=== PATIENT | female | born 1995 | race Caucasian/White ===

== ENCOUNTER 2018-03-17 22:44 | Day surgery (SDC) | payer OTHER ==
[2018-03-17 23:22] VITALS: BMI 29.7
--- NOTE | 2018-03-18 02:46 | PRG ---
DATE OF SERVICE: 03/17/2018 PRIMARY JELLY FILTER TENDER: Reena Jane M.D. CHIEF COMPLAINT: Abdominal pain. HISTORY OF PRESENT ILLNESS: The patient is a 22-year-old female with an intrauterine at 37 weeks and 5 days who presents to labor and delivery today with abdominal cramping and pain sin ce being seen by Dr. Jane today in the office. The patient reports she had a cervical check, there was 220 and -1 station. She reports that Dr. Jane did "a light sweep" and since then, patient has been kind of crampy. She reports the last time she felt like she waited too long to come in and wan aparna to make sure everything was okay. The patient denies any vaginal bleeding, any leaking fluid, an y urinary urgency or frequency, any fever, fall, headache, chest pain, shortness of breath, nausea, v omiting, diarrhea, constipation, any new rashes, hip problems or knee problems. She has been having some of the cramping pain in her back. She denies any urinary urgency or frequency. PAST MEDICAL HISTORY: Negative. PAST SURGICAL HISTORY: Negative. ALLERGIES: No known drug allergies. MEDICATIONS: vitamins and iron. SOCIAL HISTORY: Denies drug, alcohol or tobacco use. OB LABS: RPR is nonreactive in the third trimester. Hepatitis B surface antigen nonreactive in the third trimester. HIV nonreactive in the third trimester. GC and chlamydia are negative. She is rub ivone immune, blood type is A positive. REVIEW OF SYSTEMS: Per HPI. PHYSICAL EXAMINATION: VITAL SIGNS: Blood pressure 121/75, heart rate of 99, respiratory rate 18, temperature 98.9. GENERAL: The patient appears to be in no acute distress. She is alert and oriented, cooperative and pleasant to interact with. HEENT: Normocephalic, atraumatic. LUNGS: Clear to auscultation bilaterally. HEART: Regular rate and rhythm. ABDOMEN: Soft, nontender to palpation. EXTREMITIES: Nontender, nonedematous. Her cervical exam was unchanged from her visit earlier today at 220 and -2 station. heart tracing and NST performed for abdominal pain in . Duration is approximately 40 minutes. Baselines noted to be in the 130s with moderate long-term variability, positive acceleratio ns, no decelerations, positive 15 x 15 accelerations. Tocometer shows some irritability with 1-2 shena jayjay visible contractions. ASSESSMENT AND PLAN: The patient is a 22-year-old female with an intrauterine at 37 weeks and 5 days here to rule out labor. The patient has no evidence of active labor at this time. She has a category 1 tracing with a reactive NST for her baby. She reports she is GBS negative. The patient has an appointment to see Dr. Jane in 1 week. She has been given term labor precautions.
== END 2018-03-17 23:55 | disposition home or self-care (01) ==
LOC: L&D/OP 22:44
PROVIDERS: ATTEND Family Medicine
DX: O99.89 Other specified diseases and conditions complicating pregnancy, childbirth and the puerperium (principal); R10.9 Unspecified abdominal pain; Z3A.37 37 weeks gestation of pregnancy
CPT/HCPCS: 99282

== ENCOUNTER 2018-03-27 19:39 | Inpatient (IN) | payer OTHER ==
[~2018-03-27 19:39] MED LIST: Lidocaine 2% MPF 10 ML AMP (For Epidural Use) ONE; ePHEDrine/0.9% NaCl/PF SYRINGE 50 mg/10 ml ONE
[2018-03-27 20:14] VITALS: BMI 29.7
[2018-03-27] MEDS ORDERED: Ibuprofen 800 MG TAB PO PRN (20:24)
[2018-03-27] MEDS ORDERED: Ondansetron HCl/PF 4 MG/2 ML Vial IVP PRN ×2 (20:24→22:52)
[2018-03-27] MEDS ORDERED: Lidocaine 1% (PF) 30 ML VIAL SC PRN (20:24)
[2018-03-27] MEDS ORDERED: Methylergonovine 0.2 MG/ML VIAL IM PRN (20:24)
[2018-03-27] MEDS ORDERED: HYDROcodone/Acetaminophen 5/325 mg Tablet PO PRN ×2 (20:24)
[2018-03-27] MEDS ORDERED: Lactated Ringer's 1,000 ML IV SCH (20:30)
[2018-03-27] MEDS ORDERED: Bupivacaine 0.75% 13.4 ML, fentaNYL Citrate/PF 400 MCG in Sodium Chloride 0.9% 78.6 ML EPIDURAL SCH (21:00)
[2018-03-27] MEDS ORDERED: DISCONTINUE ALL PREVIOUS NARCOTICS FS SCH (21:00)
[2018-03-27] MEDS: Lactated Ringer's 1,000 ML IV SCH ×2 (21:05→23:05)
[2018-03-27 21:13] LABS: Hemoglobin 11.9 g/dL (12.0-16.0); Mean Corpuscular HGB CONC 34.9 g/dL (32.0-36.0); Mean Corpuscular Hemoglobin 30.6 pg (27.0-31.0); Mean Corpuscular Volume 87.9 fL (78.0-98.0); Mean Platelet Volume 7.9 fL (7.4-10.4); Platelet Count 223 thou/uL (130-400); RBC Distribution Width 12.3 % (11.5-14.5); Red Blood Cell (RBC) Count 3.87 mill/uL (4.20-5.40); White Blood Cell (WBC) Count 14.4 thou/uL (4.8-10.8)
[2018-03-27 21:51] LABS: Syphilis Antibody Nonreactive (Nonreactive); Syphilis Antibody Index 0.02 S/CO (<1.00 Non-Reactive)
[2018-03-27 22:50] LABS: Hep B Surf Ag Non-Reactive S/CO (NonReactive)
[2018-03-27] MEDS ORDERED: diphenhydrAMINE 50 MG/ML VIAL IVP PRN (22:52)
[2018-03-27] MEDS ORDERED: Eucerin (Mineral Oil/Petrolatum,White) 30 gm Jar TOP PRN (22:52)
[2018-03-27] MEDS ORDERED: Naloxone HCl 0.4 mg/ml Vial IVP PRN ×2 (22:52)
[2018-03-27] MEDS ORDERED: Acetaminophen 325 MG TAB PO PRN (22:52)
[2018-03-27] MEDS ORDERED: Promethazine HCl 25 MG/ML VIAL IM PRN (22:52)
[2018-03-27] MEDS ORDERED: Lactated Ringer's 500 ML IV PRN (22:52)
[2018-03-27] MEDS ORDERED: ePHEDrine/0.9% NaCl/PF SYRINGE 50 mg/10 ml SLOW IVP PRN (22:52)
[2018-03-27] MEDS ORDERED: Communication Order-Pharmacy FS SCH (23:00)
[2018-03-27] MEDS ORDERED: fentaNYL Citrate/PF 400 MCG, Bupivacaine 0.5% 20 ML in Sodium Chloride 0.9% 72 ML EPIDURAL SCH (23:00)
[2018-03-27] MEDS ORDERED: Dextrose 5%-Lactated Ringers 1,000 ML IV SCH (23:45)
[2018-03-28] MEDS ORDERED: Terbutaline Sulfate 1 MG/ML VIAL ONE (00:27)
[2018-03-28] MEDS ORDERED: Acetaminophen 1,000 MG in Premix Bag 1 BAG IVPB SCH (02:45)
[2018-03-28] MEDS ORDERED: NS / Oxytocin 40 units/1000ml 1,000 ML ONE (02:51)
[2018-03-28] MEDS ORDERED: Lidocaine 1% (PF) 30 ML VIAL ONE (02:51)
[2018-03-28] MEDS: NS / Oxytocin 40 units/1000ml 1,000 ML IV PRN ×2 (03:10→04:15)
[2018-03-28 03:35] LABS: Actual Bicarbonate (HCO3a) 25.4 mEq/L (22-28); Base Excess (BEa) -7.8 mEq/L (-2.0 to +3.0)
[2018-03-28 04:58] LABS: #Lymphocytes 1.3 thou/uL (1.20-3.40); #Monocytes 0.8 thou/uL (0.11-0.59); #Neutrophils 13.5 thou/uL (1.40-6.50); %Neutrophils 86.9 % (42.0-75.0); Hemoglobin 9.3 g/dL (12.0-16.0); Mean Corpuscular HGB CONC 33.9 g/dL (32.0-36.0); Mean Corpuscular Hemoglobin 30.3 pg (27.0-31.0); Mean Corpuscular Volume 89.2 fL (78.0-98.0); Platelet Count 159 thou/uL (130-400); RBC Distribution Width 12.3 % (11.5-14.5); Red Blood Cell (RBC) Count 3.07 mill/uL (4.20-5.40); White Blood Cell (WBC) Count 15.6 thou/uL (4.8-10.8)
[2018-03-28] MEDS ORDERED: NS / Oxytocin 40 units/1000ml 1,000 ML IV SCH (07:36)
[2018-03-28] MEDS ORDERED: Lanolin Ointment 7 GM TUBE TOP PRN (07:36)
[2018-03-28] MEDS ORDERED: Ondansetron HCl/PF 4 MG/2 ML Vial IVP PRN (07:36)
[2018-03-28] MEDS ORDERED: Bisacodyl 10 MG SUPP PR PRN (07:36)
[2018-03-28] MEDS ORDERED: Adacel (T-DAP) 0.5 ML VIAL IM ONE (07:36)
[2018-03-28] MEDS ORDERED: Milk Of Magnesia 30 ML UDCUP PO PRN (07:36)
--- NOTE | 2018-03-28 07:58 | DN ---
DATE OF ADMISSION: 03/27/2018 DATE OF DELIVERY: 03/28/2018 SUMMARY: The patient delivered a female infant on 03/28/2018 at 3:03 a.m. by term spontaneous vagina l delivery complicated by shoulder dystocia relieved with suprapubic pressure. Gestational age of 39 weeks and 2 days. Apgars are 8, 4 and 8 at 1, 5 and 10 minutes respectively. Weight is unavailable at the time of dictation and there was a nuchal cord x1. Placenta delivered spontaneously followed by Pitocin infusion. There were no lacerations. Estimated blood loss is approximately 300 mL [address] Dr. Acosta is the delivering physician. Mother is stable in the room in the immediate postpar gisela. Baby was taken to nursery for observation. Blood gas taken at the time of delivery was with a pH of 7.04, base excess of negative 7.
[2018-03-28] MEDS ORDERED: Ibuprofen 800 MG TAB PO SCH (08:00)
[2018-03-28] MEDS: Ferrous Sulfate 325 MG TAB PO SCH ×2 (09:27→17:36)
[2018-03-28] MEDS: Docusate Calcium (SURFAK) 240 MG CAP PO SCH ×2 (09:42→23:18)
[2018-03-28] MEDS: Prenatal Vitamin 1 TAB PO SCH (09:42)
[2018-03-28] MEDS: Ibuprofen 800 MG TAB PO SCH ×2 (15:14→23:18)
[2018-03-28] MEDS ORDERED: HYDROcodone/Acetaminophen 5/325 mg Tablet PO PRN ×2 (20:07)
[2018-03-29 05:30] LABS: Hemoglobin 9.2 g/dL (12.0-16.0); Mean Corpuscular HGB CONC 33.9 g/dL (32.0-36.0); Mean Corpuscular Hemoglobin 30.4 pg (27.0-31.0); Mean Corpuscular Volume 89.6 fL (78.0-98.0); Mean Platelet Volume 8.1 fL (7.4-10.4); Platelet Count 177 thou/uL (130-400); RBC Distribution Width 12.4 % (11.5-14.5); Red Blood Cell (RBC) Count 3.03 mill/uL (4.20-5.40); White Blood Cell (WBC) Count 13.3 thou/uL (4.8-10.8)
--- NOTE | 2018-03-29 06:12 | PDOC.PP ---
Post Progress Note Post Day #: 1 Subjective: , doing well. PO intake tolerated: yes Flatus: yes Ambulation: yes Vital Signs (12 hours) Temp Pulse Resp BP 03/28/18 23:25 97.6 F 84 16 136/76 03/28/18 20:00 97.9 F 103 H 16 119/61 Weight Weight 173 lb - Physical Examination General: NAD Cardiovascular: no m/r/g Respiratory: clear to auscultation bilaterally Abdominal: + bowel sounds, lochia, no distention, appropriately TTP Extremities: negative homans (B) Neurological: no gross focal deficits Psychiatric: A&Ox3, normal affect Result Diagrams: 03/29/18 04:38 Additional Labs: Post Labs Blood Type A POSITIVE 03/27/18 21:02 Hep Bs Antigen Non-Reactive S/CO (NonReactive) 03/27/18 21:02 (1) Shoulder dystocia, delivered Code(s): O66.0 - OBSTRUCTED LABOR DUE TO SHOULDER DYSTOCIA Status: Acute (2) Vaginal delivery Code(s): O80 - ENCOUNTER FOR FULL-TERM UNCOMPLICATED DELIVERY Status: Acute - Assessment/Plan PPD1 s/p with shoulder dystocia. Mother is doing well. She is now Para3. We discussed possible dsch this PM. I called the nursery, baby with mild TTN...will likely be watched today. So, we will keep mom in house until tomorrow. Plan: Continue in-house obs with prob dsch tomorrow AM
[2018-03-29] MEDS: Prenatal Vitamin 1 TAB PO SCH (07:43)
[2018-03-29] MEDS: Ibuprofen 800 MG TAB PO SCH ×3 (07:44→21:39)
[2018-03-29] MEDS: Ferrous Sulfate 325 MG TAB PO SCH ×3 (07:44→18:05)
[2018-03-29] MEDS: Docusate Calcium (SURFAK) 240 MG CAP PO SCH ×2 (07:44→21:39)
[2018-03-30] MEDS: Ibuprofen 800 MG TAB PO SCH (06:36)
[2018-03-30 08:21] VITALS: BP 119/75; TEMP 97.8
[2018-03-30] MEDS: Docusate Calcium (SURFAK) 240 MG CAP PO SCH (10:23)
[2018-03-30] MEDS: Prenatal Vitamin 1 TAB PO SCH (10:23)
[2018-03-30] MEDS: Ferrous Sulfate 325 MG TAB PO SCH (10:23)
== END 2018-03-30 12:36 | disposition home or self-care (01) | DRG 775 ==
LOC: L&D/OP 19:39 → L&D 20:25 → 3SW 03-28 08:25
PROVIDERS: ADMIT Obstetrics & Gynecology; ATTEND Family Medicine
PROC: 10E0XZZ Delivery of Products of Conception, External Approach (ICD-10-PCS; principal; 2018-03-28)
DX: O66.0 Obstructed labor due to shoulder dystocia (principal); O69.81X0 Labor and delivery complicated by cord around neck, without compression, not applicable or unspecified; Z3A.39 39 weeks gestation of pregnancy; Z37.0 Single live birth
CPT/HCPCS: 36415; 51702; 82805; 85025; 85027; 86780; 86850; 86900; 86901; 87340; 93005; 93010; 99285; J0131; J2001; J3010; J3105; J7050

== ENCOUNTER 2020-02-11 02:54 | Emergency (ER) | payer OTHER ==
[2020-02-11] MEDS ORDERED: Adacel (T-DAP) 0.5 ML SYRINGE ONE (03:05)
[2020-02-11] MEDS ORDERED: Morphine 4 MG/ML VIAL ONE (03:31)
[2020-02-11] MEDS ORDERED: Lidocaine 1% w/Epinephrine 1:100K 20 ML VIAL ONE (03:39)
[2020-02-11 03:47] LABS: #Basophils 0.1 thou/uL (0.0-0.2); #Eosinphils 0.1 thou/uL (0.0-0.7); #Monocytes 0.7 thou/uL (0.11-0.59); #Neutrophils 8.2 thou/uL (1.40-6.50); %Basophils 0.5 % (0.0-1.0); %Eosinophils 0.6 % (0.0-10.0); %Lymphocytes 17.9 % (21.0-51.0); %Monocytes 5.9 % (0.0-10.0); Hemoglobin 14.8 g/dL (12.0-16.0); Mean Corpuscular HGB CONC 35.2 g/dL (32.0-36.0); Mean Corpuscular Hemoglobin 31.9 pg (27.0-31.0); Mean Corpuscular Volume 90.7 fL (78.0-98.0); Mean Platelet Volume 8.4 fL (7.4-10.4); Platelet Count 348 thou/uL (130-400); Red Blood Cell (RBC) Count 4.64 mill/uL (4.20-5.40); White Blood Cell (WBC) Count 10.9 thou/uL (4.8-10.8)
[2020-02-11 03:55] LABS: BHCG - Serum Negative (NEGATIVE); Pregs Control Background? CLEAR/WHITE (CLR/WHITE); Pregs Control Bar Appear? YES (CONTROL BAR)
[2020-02-11 04:10] LABS: ALT (SGPT) 18 U/L (8-55); AST (SGOT) 29 U/L (5-34); Albumin 4.6 g/dL (3.5-5.0); Alcohol Less than 10 mg/dL (Less than 10); Alkaline Phosphatase 82 U/L (40-110); Anion Gap 14 mmol/L (10-20); BUN (Urea Nitrogen) 11 mg/dL (7.0-18.7); Bilirubin, Total 0.6 mg/dL (0.2-1.2); Calc. Creatinine Clearance 0 mL/min (70-130); Calcium 10.1 mg/dL (7.8-10.44); Carbon Dioxide 25 mmol/L (22-29); Chloride 106 mmol/L (98-107); Estimated GFR-MDRD 82; Globulin 3.1 g/dL (2.4-3.5); Glucose 111 mg/dL (70-105); Potassium 3.8 mmol/L (3.5-5.1); Protein, Total 7.7 g/dL (6.0-8.3); Sodium 141 mmol/L (136-145)
[2020-02-11] MEDS ORDERED: Bacitracin 1 PK ONE ×2 (04:31→04:42)
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
== END 2020-02-11 05:00 | disposition home or self-care (01) ==
LOC: ERS 02:54
DX: S01.81XA Laceration without foreign body of other part of head, initial encounter (principal); S40.012A Contusion of left shoulder, initial encounter; R21 Rash and other nonspecific skin eruption; V20.5XXA Motorcycle passenger injured in collision with pedestrian or animal in traffic accident, initial encounter
CPT/HCPCS: 12052; 36415; 70450; 71045; 72125; 80053; 80307; 83605; 84703; 85025; 90471; 90715; 96374; J2270

== ENCOUNTER 2020-02-19 14:31 | Emergency (ER) | payer OTHER | END 2020-02-19 15:40 | disposition home or self-care (01) | LOC: ERS 14:31 | DX: S01.81XD Laceration without foreign body of other part of head, subsequent encounter (principal); F17.210 Nicotine dependence, cigarettes, uncomplicated; V89.2XXD Person injured in unspecified motor-vehicle accident, traffic, subsequent encounter ==